=== PATIENT | female | born 1995 | race Caucasian/White ===

== ENCOUNTER → 2021-01-06 | Outpatient (CLI) | payer MEDICAID ==
[~2021-01-06] MED LIST: IBU800 M1 PO
== END ==
LOC: DIA.ED 09:33
DX: O24.419 Gestational diabetes mellitus in pregnancy, unspecified control (principal)
CPT/HCPCS: G0108

== ENCOUNTER → 2021-01-15 | Outpatient (CLI) | payer MEDICAID | LOC: DIA.ED 12:44 | DX: O24.419 Gestational diabetes mellitus in pregnancy, unspecified control (principal) | CPT/HCPCS: G0108 ==

== ENCOUNTER 2021-02-12 12:01 | Inpatient (IN) | payer MEDICAID ==
[2021-02-12] VITALS (19 sets, daily range): BP systolic 100–121; BP diastolic 55–72; PULSE 59–105; TEMP 97.8–98.5
[~2021-02-12] VITALS: Ht 165.1 cm; Wt 76.4 kg
--- NOTE | 2021-02-12 11:55 | NUR ---
Pt arrived on unit with complaints of contractions since 399. Pt denies any leaking of fluid or vaginal bleeding and reports normal movement. EFM and toco monitors started. Vital signs WNL. SVE by this RN . Dr. Calderon notified. See physician notification for details.
[2021-02-12 13:10] LABS: BASO # 0.1 K/mm3 (0.0-0.2); BASO % 0.2 % (0.0-2.0); GRAN # 19.1 K/mm3 (1.4-6.5); GRAN % 89.6 % (42.2-75.2); HEMATOCRIT 40.5 % (37.0-47.0); HEMOGLOBIN 13.6 g/dl (12.5-16.0); LYMPH # 1.5 K/mm3 (1.2-3.4); MEAN CELL VOLUME 101 fl (80.0-100.0); MEAN CORPUSCULAR HEMOGLOBIN 34 pg (27.0-31.0); MEAN CORPUSCULAR HGB CONC 34 g/dl (33.0-37.0); MEAN PLATELET VOLUME 10.7 fl (7.4-10.4); MONO # 0.5 K/mm3 (0.1-0.6); MONO % 2.4 % (1.7-9.3); PLATELET COUNT 274 K/mm3 (130-400); RED BLOOD COUNT 4.02 M/mm3 (4.10-5.30); REDCELL DISTRIBUTION WIDTH-CV 12.5 % (11.5-14.5)
--- NOTE | 2021-02-12 13:20 | NUR ---
1320- Fide TELEPHONE [employer] BOX COLLECTOR at the bedside for epidural placement per pt's request. Information reviewed. Time out done. 1322- Pt sitting up on the edge of the bed. 1329- SPO2 monitor started. 1336- Test dose done per Fide. See anesthesia records for details. 1342- Assisted pt back to supine with left wedge position. EFM and toco monitors adjusted.
--- NOTE | 2021-02-12 14:41 | NUR ---
1441- Pt reports feeling pressure. SVE done 0. 1444- Roles notified. 1450- Pushing started. 1500- Roles at the bedside. SVE done with AROM. 1610- Roles at the bedside. Pt set up for delivery. 1623- of viable male . Matheny put on mom's abdomen. Cords clamped and cut. Care of the given to nursery RN at the bedside. 1626- of placenta. Fundus firm, moderate lochia per Roles. Pitocin started at 333ml/hr per order and protocol. 1630- IM methergine order received and given. See EMAR for details. 1640- IV infiltrated. Order for IM pitocin received. See EMAR for details.
--- NOTE | 2021-02-12 19:31 | NUR ---
SITS UP IN BED, IV SITE RESTARTED, PITOCIN STARTED PER INFUSION PUMP AT 333ML/HR. ZOFRAN GIVEN FOR NAUSEA, TAKING CRACKERS AND WATER WITHOUT EMESIS. RETURNED TO ROOM AFTER DR EXAM. PT DENIES ANY NEEDS
--- NOTE | 2021-02-12 22:55 | NUR ---
UP TO BATHROOM, VOIDS WITHOUT DIFFICULTY. BRYN CARE INSTRUCTED AND PERFORMED, ICE PACK AND PADS CHANGED. TOLERATES BEING UP WELL. THEN TRANSFERRED TO ROOM 219 PER W/C
[2021-02-12 23:03] LABS: TRICYCLIC ANTIDEPRESS URINE NEGATIVE
[2021-02-13 04:00] VITALS: BP 103/65; PULSE 95; TEMP 98.7
[2021-02-13 07:30] VITALS: BP 105/72; PULSE 86; TEMP 98
--- NOTE | 2021-02-13 10:03 | NUR ---
Town Manager met with patient in response to a consult for risk of presence of illegal drugs in infant. Father of baby, Jeremiah Richards is at bedside. Patient and Jeremiah live in [place] and had care set up here in [place] because patient wanted to establish primary care here with [facility]. 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 Patient reports that baby will follow with Dr. Nunn at [facility]. Patient advised this is her first child and feels like she has adequate support from Jeremiah and Jeremiah's family, who all live in the area. Patient reports they have all supplies needed for baby at home and are looking forward to discharge. Patient denies any significant mental health concerns during . SW addressed positive UDS for marijuana. Patient reports the OB she was seeing in [place] during her first trimester recommended marijuana use for nausea. Patient reports she stopped two weeks ago at the recommendation of Dr. Shine. Patient states she plans to breastfeed which is why she stopped using. Patient is unable to breastfeed at this time, but reports she has been pumping. Baby is currently taking formula. Per RN report, patient is concerned about visit from Child Protective Services. SW advised patient that SW is a mandated photography sales associate and will be making a report due to positive UDS. SW provided reassurance and advised that CPS may visit her home to conduct their assessment for safety and unmet needs. Patient verbalized understanding and denied any further questions or concerns at this time. MARILIA collaborated with RNWendy about the above information. MARILIA also left a message for Dr. Nunn's RN requesting a call back.
--- NOTE | 2021-02-13 11:01 | NUR ---
PATIENT AND WATCHING TEACHING VIDEOS AT THIS TIME
[2021-02-13 13:30] VITALS: BP 116/60; PULSE 64; TEMP 97.7
--- NOTE | 2021-02-13 15:50 | NUR ---
REPORT TAKEN AND CARE ASSUMED.
[2021-02-13 16:23] VITALS: BP 111/71; PULSE 72; TEMP 98
[2021-02-13 20:20] VITALS: BP 107/60; PULSE 63; TEMP 98.2
[2021-02-14] MEDS ORDERED: IBU800 M1 PO (10:19)
== END 2021-02-14 11:00 | disposition home or self-care (01) | DRG 807 ==
LOC: LDRO 12:01 → OB 12:22 → LDR 12:22 → OB 21:00
PROVIDERS: ADMIT Obstetrics & Gynecology
PROC: 10E0XZZ Delivery of Products of Conception, External Approach (ICD-10-PCS; principal; 2021-02-12)
PROC: 0UQMXZZ Repair Vulva, External Approach (ICD-10-PCS; 2021-02-12)
DX: O69.81X0 Labor and delivery complicated by cord around neck, without compression, not applicable or unspecified (principal); Z37.0 Single live birth; O70.0 First degree perineal laceration during delivery; Z3A.39 39 weeks gestation of pregnancy
CPT/HCPCS: J2210; J2405; J2590; J7120